=== PATIENT | female | born 1950 ===

== ENCOUNTER 2021-02-01 05:00 | Day surgery (SDC) | payer OTHER ==
[~2021-02-01 05:00] MED LIST: DILANTIN100 MG PO; ZESTRIL30 MG PO
== END 2021-02-01 12:00 | disposition home or self-care (01) ==
LOC: CIR.AMB 05:00
PROVIDERS: ATTEND Specialist
DX: K80.10 Calculus of gallbladder with chronic cholecystitis without obstruction (principal); Z20.822 Contact with and (suspected) exposure to COVID-19